=== PATIENT | male | born 1945 | race Caucasian/White ===

== ENCOUNTER 2017-01-30 05:43 | Day surgery (SDC) | payer OTHER ==
[~2017-01-30] VITALS: Ht 162.6 cm; Wt 68.0 kg
[2017-01-30] MEDS ORDERED: LACT10SO94 PO (07:13)
[2017-01-30] MEDS ORDERED: METF500T PO (07:13)
[2017-01-30] MEDS ORDERED: BENA40TA PO (07:13)
[2017-01-30] MEDS ORDERED: MIDAZOLAM 2 MG/2 ML VIAL ONE (07:26)
[2017-01-30] MEDS ORDERED: fentaNYL 0.05 MG/ML VIAL ONE (07:26)
[2017-01-30] MEDS ORDERED: LIDOCAINE 2% 100 MG/5 ML UJET TP ONE (07:27)
== END 2017-01-30 09:15 | disposition home or self-care (01) ==
LOC: MDS 05:43 → MMU 06:01 → MDS 09:15
PROVIDERS: ATTEND Internal Medicine Gastroenterology
DX: Z12.11 Encounter for screening for malignant neoplasm of colon (principal); K63.5 Polyp of colon; I10 Essential (primary) hypertension; E11.9 Type 2 diabetes mellitus without complications; E66.3 Overweight; F17.210 Nicotine dependence, cigarettes, uncomplicated; Z79.899 Other long term (current) drug therapy; Z79.84 Long term (current) use of oral hypoglycemic drugs
CPT/HCPCS: 82948; J2250; J3010